=== PATIENT | female | born 1945 ===

== ENCOUNTER 2020-05-15 12:23 | Emergency (ER) | payer MEDICARE, OTHER ==
--- NOTE | 2020-05-15 16:19 | Event Note ---
ED Screening Note ED Screening Note: abd pain for a week and a half +constipation +headache, confusion per family +nausea and vomiting did not take her medication today no fever PMHx DM, HLD, chronic pain on tramadol allergy:lisinopril, codeine, sulfa This initial assessment/diagnostic orders/clinical plan/treatment(s) is/are subject to change based on patients health status, clinical progression and re- assessment by fellow clinical providers in the ED. Further treatment and workup at subsequent clinical providers discretion. Patient/guardian urged not to elope from the ED as their condition may be serious if not clinically assessed and managed. Initial orders include: labs, UA, CT head, XR abd
[2020-05-15 16:47] LABS: Basophils % (Auto) 0.6 % (0.0-1.8); Eosinophils % (Auto) 0.6 % (0.0-4.3); Hematocrit 40.2 % (30.3-42.9); Hemoglobin 13.1 gm/dl (10.1-14.3); Lymphocytes # (Auto) 1.3 K/mm3 (1.2-5.4); Lymphocytes % (Auto) 17.6 % (13.4-35.0); Mean Corpuscular HGB Conc 33 % (30-34); Mean Corpuscular Volume 93 fl (79-97); Monocytes # (Auto) 0.3 K/mm3 (0.0-0.8); Monocytes % (Auto) 3.7 % (0.0-7.3); Platelet Count 269 K/mm3 (140-440); Red Blood Count 4.31 M/mm3 (3.65-5.03); Red Cell Distribution Width 13.3 % (13.2-15.2)
--- NOTE | 2020-05-15 16:58 | XRay Report ---
ABDOMEN SUPINE INDICATION / CLINICAL INFORMATION: constipation, abd pain. COMPARISON: None available. FINDINGS: History is noted; there indeed appears to be considerable dense fecal material throughout the entire colon, consistent with constipation. Rectum contains considerable gas, so there is no evidence of fec al impaction. Signer Name: Evert Mccartney MD Signed: 05/15/2020 4:54 PM Workstation Name: [id number]
[2020-05-15 17:04] LABS: Albumin 4.1 g/dL (3.9-5); Calcium 9.9 mg/dL (8.4-10.2)
--- NOTE | 2020-05-15 17:18 | Cat Scan Report ---
NONENHANCED CT SCAN OF THE HEAD: INDICATION / CLINICAL INFORMATION: 74 years Female; headache. TECHNIQUE: Routine CT head without contrast. All CT scans at this location are performed using CT dos e reduction for ALARA by means of automated exposure control. COMPARISON: None. FINDINGS: BRAIN / INTRACRANIAL CONTENTS: No acute hemorrhage, mass effect, midline shift, hydrocephalus, or ac resighini, large territorial infarct. No chronic infarct or focal atrophy. Focal lesion in the white matter ; brainstem and cerebellar hemispheres normal CRANIOCERVICAL JUNCTION: No significant abnormality. ORBITS: No significant abnormality of visualized orbits. SINUSES / MASTOIDS: No significant abnormality of the visualized paranasal sinuses or mastoid air alex ls. ADDITIONAL FINDINGS: None. IMPRESSION: No focal parenchymal lesion Signer Name: Jomar Fuentes MD Signed: 05/15/2020 5:13 PM Workstation Name: [id number]
[2020-05-15] MEDS ORDERED: SODIUM CHLORIDE 0.9% 1000 ML 1,000 ML IV ONE (20:59)
--- NOTE | 2020-05-15 21:03 | Emergency Department Report ---
ED General Adult HPI - General Chief complaint: Abdominal Pain Stated complaint: HEADACHE/NAUSEA Time Seen by Provider: 05/15/20 16:16 Source: patient Mode of arrival: Wheelchair Limitations: No Limitations - History of Present Illness Initial comments: Patient is a 74-year-old F Nepalese female who is presenting with some altered mental status. Patient is been brought in by her granddaughter because the patient has had a decline in her mental status for the last day. Normally she is very lively talkative and very independent but today she is main lying around all day and has been poorly interactive less talkative has been complaining of weakness. For the past week and a half patient has been complaining of some abdominal discomfort. She has seen her primary care physician who is scheduling her for outpatient CT scan. Patient is been complaining of mild headache nausea and some constipation. Is been no actual vomiting. Patient granddaughter denies hearing any cough congestion there is been no fever at home. Patient did not take her medications today. - Related Data Previous Rx's Medication Instructions Recorded Last Taken Type Dicyclomine [Bentyl] 20 mg PO QID #14 tablet 05/15/20 Unknown Rx Docusate Sodium [Colace] 100 mg PO BID #30 capsule 05/15/20 Unknown Rx Allergies Allergy/AdvReac Type Severity Reaction Status Date / Time No Known Allergies Allergy Verified 05/15/20 21:34 ED Review of Systems ROS: Stated complaint: HEADACHE/NAUSEA Other details as noted in HPI Comment: All other systems reviewed and negative ED Past Medical Hx - Social History Smoking Status: Former Smoker - Medications Home Medications: Home Medications Medication Instructions Recorded Confirmed Last Taken Type Dicyclomine [Bentyl] 20 mg PO QID #14 tablet 05/15/20 Unknown Rx Docusate Sodium [Colace] 100 mg PO BID #30 capsule 05/15/20 Unknown Rx ED Physical Exam - General Limitations: No Limitations General appearance: alert, in no apparent distress - Head Head exam: Present: atraumatic, normocephalic - Eye Eye exam: Present: normal appearance, PERRL, EOMI - ENT ENT exam: Present: mucous membranes moist - Neck Neck exam: Present: normal inspection - Respiratory Respiratory exam: Present: normal lung sounds bilaterally. Absent: respiratory distress, wheezes, rales, rhonchi - Cardiovascular Cardiovascular Exam: Present: regular rate, normal rhythm, normal heart sounds. Absent: systolic murmur, diastolic murmur, rubs, gallop - GI/Abdominal GI/Abdominal exam: Present: soft, normal bowel sounds. Absent: distended, tenderness, guarding, rebound - Extremities Exam Extremities exam: Present: normal inspection - Back Exam Back exam: Present: normal inspection - Neurological Exam Neurological exam: Present: alert, oriented X3 - Psychiatric Psychiatric exam: Present: normal affect, normal mood - Skin Skin exam: Present: warm, dry, intact, normal color. Absent: rash ED Course Vital Signs 05/15/20 20:44 Temperature 98.9 F Pulse Rate 92 H Respiratory 18 Rate Blood Pressure 164/73 O2 Sat by Pulse 99 Oximetry ED Medical Decision Making - Lab Data Result diagrams: 05/15/20 16:22 05/15/20 16:22 Lab Results 05/15/20 05/15/20 05/15/20 Range/Units 16:22 16:22 16:27 WBC 7.5 (4.5-11.0) K/mm3 RBC 4.31 (3.65-5.03) M/mm3 Hgb 13.1 (10.1-14.3) gm/dl Hct 40.2 (30.3-42.9) % MCV 93 (79-97) fl MCH 30 (28-32) pg MCHC 33 (30-34) % RDW 13.3 (13.2-15.2) % Plt Count 269 (140-440) K/mm3 Lymph % (Auto) 17.6 (13.4-35.0) % [place] % (Auto) 3.7 (0.0-7.3) % Eos % (Auto) 0.6 (0.0-4.3) % Baso % (Auto) 0.6 (0.0-1.8) % Lymph # (Auto) 1.3 (1.2-5.4) K/mm3 [place] # (Auto) 0.3 (0.0-0.8) K/mm3 Eos # (Auto) 0.0 (0.0-0.4) K/mm3 Baso # (Auto) 0.0 (0.0-0.1) K/mm3 Seg Neutrophils % 77.5 H (40.0-70.0) % Seg Neutrophils # 5.8 (1.8-7.7) K/mm3 VBG pH 7.409 (7.320-7.420) Sodium 135 L (137-145) mmol/L Potassium 4.8 (3.6-5.0) mmol/L Chloride 97.8 L (98-107) mmol/L Carbon Dioxide 28 (22-30) mmol/L Anion Gap 14 mmol/L BUN 12 (7-17) mg/dL Creatinine 1.3 H (0.6-1.2) mg/dL Estimated GFR 40 ml/min BUN/Creatinine Ratio 9 % Glucose 145 H (65-100) mg/dL Calcium 9.9 (8.4-10.2) mg/dL Total Bilirubin 0.60 (0.1-1.2) mg/dL AST 16 (5-40) units/L ALT 10 (7-56) units/L Alkaline Phosphatase 97 (35-129) units/L Total Protein 7.5 (6.3-8.2) g/dL Albumin 4.1 (3.9-5) g/dL Albumin/Globulin Ratio 1.2 % Lipase 15 (13-60) units/L Urine Color (Yellow) Urine Turbidity (Clear) Urine pH (5.0-7.0) Ur Specific [place] (1.003-1.030) Urine Protein (Negative) mg/dL Urine Glucose (UA) (Negative) mg/dL Urine Ketones (Negative) mg/dL Urine Blood (Negative) Urine Nitrite (Negative) Urine Bilirubin (Negative) Urine Urobilinogen (<2.0) mg/dL Ur Leukocyte Esterase (Negative) Urine WBC (Auto) (0.0-6.0) /HPF Urine RBC (Auto) (0.0-6.0) /HPF U Epithel Cells (Auto) (0-13.0) /HPF 05/15/20 Range/Units Unknown WBC (4.5-11.0) K/mm3 RBC (3.65-5.03) M/mm3 Hgb (10.1-14.3) gm/dl Hct (30.3-42.9) % MCV (79-97) fl MCH (28-32) pg MCHC (30-34) % RDW (13.2-15.2) % Plt Count (140-440) K/mm3 Lymph % (Auto) (13.4-35.0) % [place] % (Auto) (0.0-7.3) % Eos % (Auto) (0.0-4.3) % Baso % (Auto) (0.0-1.8) % Lymph # (Auto) (1.2-5.4) K/mm3 [place] # (Auto) (0.0-0.8) K/mm3 Eos # (Auto) (0.0-0.4) K/mm3 Baso # (Auto) (0.0-0.1) K/mm3 Seg Neutrophils % (40.0-70.0) % Seg Neutrophils # (1.8-7.7) K/mm3 VBG pH (7.320-7.420) Sodium (137-145) mmol/L Potassium (3.6-5.0) mmol/L Chloride (98-107) mmol/L Carbon Dioxide (22-30) mmol/L Anion Gap mmol/L BUN (7-17) mg/dL Creatinine (0.6-1.2) mg/dL Estimated GFR ml/min BUN/Creatinine Ratio % Glucose (65-100) mg/dL Calcium (8.4-10.2) mg/dL Total Bilirubin (0.1-1.2) mg/dL AST (5-40) units/L ALT (7-56) units/L Alkaline Phosphatase (35-129) units/L Total Protein (6.3-8.2) g/dL Albumin (3.9-5) g/dL Albumin/Globulin Ratio % Lipase (13-60) units/L Urine Color Yellow (Yellow) Urine Turbidity Clear (Clear) Urine pH 6.0 (5.0-7.0) Ur Specific [place] 1.009 (1.003-1.030) Urine Protein 30 mg/dl (Negative) mg/dL Urine Glucose (UA) Neg (Negative) mg/dL Urine Ketones Tr (Negative) mg/dL Urine Blood Sm (Negative) Urine Nitrite Neg (Negative) Urine Bilirubin Neg (Negative) Urine Urobilinogen < 2.0 (<2.0) mg/dL Ur Leukocyte Esterase Neg (Negative) Urine WBC (Auto) < 1.0 (0.0-6.0) /HPF Urine RBC (Auto) 5.0 (0.0-6.0) /HPF U Epithel Cells (Auto) 2.0 (0-13.0) /HPF - Radiology Data [address] [address] Cat Scan Report Signed Patient: LEANDRO DE LEON MR#: [id number] : 1945 Acct:[id number] Age/Sex: 74 / F ADM Date: 05/15/20 Loc: ED Attending Dr: Ordering Physician: QI HINES Date of Service: 05/15/20 Procedure(s): CT head/brain wo con Accession Number(s): [id number] cc: QI HINES NONENHANCED CT SCAN OF THE HEAD: INDICATION / CLINICAL INFORMATION: 74 years Female; headache. TECHNIQUE: Routine CT head without contrast. All CT scans at this location are performed using CT dose reduction for ALARA by means of automated exposure control. COMPARISON: None. FINDINGS: BRAIN / INTRACRANIAL CONTENTS: No acute hemorrhage, mass effect, midline shift, hydrocephalus, or acute, large territorial infarct. No chronic infarct or focal atrophy. Focal lesion in the white matter; brainstem and cerebellar hemispheres normal CRANIOCERVICAL JUNCTION: No significant abnormality. ORBITS: No significant abnormality of visualized orbits. SINUSES / MASTOIDS: No significant abnormality of the visualized paranasal sinuses or mastoid air cells. ADDITIONAL FINDINGS: None. IMPRESSION: No focal parenchymal lesion Signer Name: Jomar Fuentes MD Signed: 05/15/2020 5:13 PM Workstation Name: [id number] Transcribed By: BS Dictated By: Jomar Jerome MD Electronically Authenticated By: Jomar Jerome MD Signed Date/Time: 05/15/[address] [address] XRay Report Signed Patient: LEANDRO DE LEON MR#: [id number] : 1945 Acct:[id number] Age/Sex: 74 / F ADM Date: 05/15/20 Loc: ED Attending Dr: Ordering Physician: QI HINES Date of Service: 05/15/20 Procedure(s): XR abdomen 2V Accession Number(s): [id number] cc: QI HINES Fluoro Time In Minutes: ABDOMEN SUPINE INDICATION / CLINICAL INFORMATION: constipation, abd pain. COMPARISON: None available. FINDINGS: History is noted; there indeed appears to be considerable dense fecal material throughout the entire colon, consistent with constipation. Rectum contains considerable gas, so there is no evidence of fecal impaction. Signer Name: Evert Mccartney MD Signed: 05/15/2020 4:54 PM Workstation Name: [id number] Transcribed By: TM Dictated By: Evert Mccartney MD Electronically Authenticated By: Evert Mccartney MD Signed Date/Time: 05/15/20 1584 - Medical Decision Making Patient granddaughter states that since she is having problems having bowel movements she actually is has been nauseous and eating and drinking less because she has a full sensation in abdomen. X-ray does confirm constipation but no obstruction. Patient hydrated to see if this will eventually help with the patient's constipation she will be placed on a stool softener. No evidence of infection acute stroke or extreme electrolyte abnormalities been found. Clinically the patient may have some mild dehydration but not to the level where is causing any prerenal strain to the kidneys. Patient was ambulatory here in the emergency department to walk to the bathroom unassisted. Patient does not meet criteria for admission at this time will be discharged home with medication for symptomatic relief. Critical care attestation.: If time is entered above; I have spent that time in minutes in the direct care of this critically ill patient, excluding procedure time. ED Disposition Clinical Impression: Mild dehydration, Constipation, Chronic headache, Decreased appetite Disposition: DC-01 TO HOME OR SELFCARE Is pt being admited?: No Does the pt Need Aspirin: No Condition: Stable Instructions: Chronic Constipation, Dehydration, Elderly, [id number], Abdominal Pain (ED) Additional Instructions: Your diagnosis of mild dehydration is based on the clinical description of your symptoms and the fact that she has been eating and drinking less due to your constipation. You have been hydrated and hopefully the medications prescribed will relieve your discomfort. -Dr Alin Hussein III Referrals: PRIMARY CARE, [Primary Care Provider] - 3-5 Days Time of Disposition: 22:44
[2020-05-15] MEDS ORDERED: SODIUM CHLORIDE 0.9% 1000 ML 1,000 ML ONE (21:08)
[2020-05-15 21:27] LABS: Bilirubin,Urine NEG (Negative); Blood,Urine SM (Negative); Color,Urine Yellow (Yellow); Urobilinogen,Urine < 2.0 mg/dL (<2.0); WBC,Urine < 1.0 /HPF (0.0-6.0)
[2020-05-15] MEDS ORDERED: traMADol 50 MG TAB PO ONE (21:39)
[2020-05-15] MEDS ORDERED: traMADol 50 MG TAB ONE (22:10)
[2020-05-16 00:03] VITALS: BP 147/78
== END 2020-05-16 00:03 | disposition home or self-care (01) ==
LOC: ED 12:23
DX: K59.00 Constipation, unspecified (principal); E86.0 Dehydration; R63.0 Anorexia; R51.9 Headache, unspecified; Z79.899 Other long term (current) drug therapy; Z87.891 Personal history of nicotine dependence
CPT/HCPCS: 36415; 70450; 74019; 80053; 81001; 82805; 83690; 85025; 96360; 99284; J7030